=== PATIENT | female | born 1930 | race Caucasian/White ===

== ENCOUNTER 2017-11-13 15:36 | Inpatient (IN) ==
--- NOTE | 2017-11-13 16:02 | Emergency Department Note ---
Disposition Clinical Impression: Pleural effusion due to CHF (congestive heart failure), SOB (shortness of breath) Disposition: Admitted As Inpatient Time of Disposition: 18:44 SOB HPI - General Chief Complaint: ED Shortness of Breath/Dyspnea Stated Complaint: "ray,pain down arm/in back sent from " Time Seen by Provider: 11/13/17 15:45 Source: patient Mode of arrival: ambulatory Limitations: no limitations Nursing Notes Reviewed: Yes Vital Signs Reviewed: Yes - History of Present Illness Patient is an 87-year-old female with past medical history of CAD, none coronary artery occlusion, no previous stent placement or MO. She presents today due to shortness of breath over the past 2 weeks, with worsening over the past few days. She admits to dyspnea with exertion, also has associated left arm pain that radiates up to her neck. Denies any specific chest discomfort. She states that she is usually very active but has not been able to swim or right or bicycle like usual due to significant dyspnea. Denies any history of COPD, asthma. She denies any other nausea, vomiting, fevers, diarrhea, abdominal pain, dysuria, hematuria. Denies any recent long car rides, recent surgeries, none history of DVT or PE, not currently on any estrogen. 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 Otherwise no other cancer history. Admits to cough but denies any productive sputum. - Related Data Home Medications Medication Instructions Recorded Confirmed Aspirin Enteric Coated [Aspirin EC] 81 mg PO QPM 11/13/17 11/13/17 Omeprazole [PriLOSEC] 40 mg PO QAM 11/13/17 11/13/17 Allergies Allergy/AdvReac Type Severity Reaction Status Date / Time alendronate sodium Allergy See Verified 11/13/17 17:14 [From Fosamax] Comments atorvastatin [From Lipitor] Allergy Muscle Pain Verified 11/13/17 17:14 codeine Allergy Dizziness Verified 11/13/17 17:14 ezetimibe [From Zetia] Allergy Dizziness Verified 11/13/17 17:14 fenofibrate Allergy Muscle Pain Verified 11/13/17 17:14 fish oil Allergy Abdominal Verified 11/13/17 17:14 Pain iron Allergy Nausea Verified 11/13/17 17:14 isosorbide [From Imdur] Allergy See Verified 11/13/17 17:14 Comments morphine Allergy Dizziness Verified 11/13/17 17:14 niacin Allergy Muscle Pain Verified 11/13/17 17:14 [From Niaspan Extended-Release] pravastatin [From Pravachol] Allergy Joint Pain Verified 11/13/17 17:14 simvastatin Allergy Flatulence Verified 11/13/17 17:14 All systems ED: reviewed and negative except as stated. Constitutional: Denies: fever Cardiovascular: Denies: chest pain Respiratory: Reports: cough, dyspnea. Denies: wheezes, hemoptysis, sputum production Gastrointestinal: Denies: abdominal pain, nausea, vomiting Genitourinary: Denies: urgency, dysuria Integumentary: Denies: rash Neurological: Denies: headache, weakness, numbness, paresthesias Past Medical History - Past Medical History Attestation: Yes The following information was validated with the patient. Source: patient Medical history: Reports: arthritis, coronary artery disease Surgical history: Reports: cancer surgery, cholecystectomy, hysterectomy, other Psychiatric history: Reports: no psych history - Social History Smoking Status: Never smoker Smokeless Tobacco Status: No Alcohol use: Reports: none Drug use: Reports: none Physical Exam - General Limitations: no limitations General appearance: alert, in no apparent distress - Head Head exam: atraumatic, normocephalic, normal inspection - Eye Eye exam: Present: normal appearance, PERRL, EOMI - ENT ENT exam: normal exam, normal oropharynx, mucous membranes moist - Neck Neck exam: Present: normal inspection, full ROM, trachea midline - Chest Chest inspection: Present: normal inspection, symmetric chest wall rise - Respiratory Respiratory exam: Present: normal lung sounds bilaterally. Absent: respiratory distress, wheezes, stridor, accessory muscle use - Cardiovascular Cardiovascular exam: Present: regular rate, normal rhythm, normal heart sounds - Abdominal Exam Abdominal exam: Present: soft, Non-Tender. Absent: tenderness, distention, guarding, rebound, rigidity - Extremities Exam Extremities exam: Present: normal inspection, full ROM. Absent: tenderness, pedal edema, calf tenderness - Neurological Exam Neurological exam: Present: alert, oriented X3 - Psychiatric Psychiatric exam: Present: normal affect, normal mood - Skin Skin exam: Present: warm, dry, intact, normal color Course Course Narrative: Patient was 95% on room air. Lungs were clear but patient did appear to be mildly short of breath. No significant leg swelling, no calf tenderness. No risk factors for PE. However, I cannot use PERC rule for patient due to age. She does have known CAD, there is concern for ACS picture. We will perform EKG , chest x-ray, troponin, d-dimer to assess for PE. No breathing treatments or steroids at this time as patient has not wheezing and has good airflow. 18:43 workup consistent with CHF, CHF exacerbation. Troponin negative. EKG showed no acute ST changes. BNP elevated at 1300. Chest x-ray shows pleural effusions. Patient was given Lasix here in the department. Discussed admission with the patient for further care, she is agreeable with this plan. Patient was accepted by Dr. Gomez. Vital Signs Temperature 97.3 F L 11/13/17 15:39 Pulse Rate 98 11/13/17 15:39 Respiratory Rate 20 11/13/17 15:39 Blood Pressure 128/80 11/13/17 15:39 O2 Sat by Pulse Oximetry 95 11/13/17 15:39 Temperature 97.3 F L 11/13/17 15:39 Pulse Rate 89 11/13/17 17:34 Respiratory Rate 16 11/13/17 17:34 Blood Pressure 137/94 11/13/17 17:34 O2 Sat by Pulse Oximetry 95 11/13/17 15:39 Oxygen Delivery Oxygen Delivery Room Air Shortness of Breath/Dyspnea - MDM Narrative Medical decision making narrative: Patient was 95% on room air. Lungs were clear but patient did appear to be mildly short of breath. No significant leg swelling, no calf tenderness. No risk factors for PE. However, I cannot use PERC rule for patient due to age. She does have known CAD, there is concern for ACS picture. We will perform EKG , chest x-ray, troponin, d-dimer to assess for PE. No breathing treatments or steroids at this time as patient has not wheezing and has good airflow. 18:43 workup consistent with CHF, CHF exacerbation. Troponin negative. EKG showed no acute ST changes. BNP elevated at 1300. Chest x-ray shows pleural effusions. Patient was given Lasix here in the department. Discussed admission with the patient for further care, she is agreeable with this plan. Patient was accepted by Dr. Gomez. - Medical Records Medical records reviewed: Yes I reviewed the patient's medical records. - Lab Data Lab results reviewed: Yes I reviewed the patient's lab results. Result diagrams: 11/13/17 16:12 11/13/17 16:12 Lab Results 11/13/17 11/13/17 11/13/17 Range/Units 16:12 16:12 16:12 WBC 8.0 (4.3-11.1) K/mcL RBC 4.10 (3.82-4.97) M/mcL Hgb 13.3 (11.5-15.4) g/dL Hct 38.2 (35.3-44.9) % MCV 93.2 (83.0-100.0) fL MCH 32.4 (28.0-33.3) pg MCHC 34.8 (31.6-35.5) g/dL RDW 13.5 (11.5-14.5) % Plt Count 309 (140-400) K/mcL MPV 10.1 (9.4-12.4) fL Immature Gran % 0.2 (0-4) % Seg Neutrophils % 63.9 % Lymphocytes % 24.6 % Monocytes % 10.0 % Eosinophils % 1.2 % Basophils % 0.1 % Neutrophils # 5.1 (1.6-8.9) K/mcL Lymphocytes # 2.0 (0.6-4.6) K/mcL Monocytes # 0.8 (0.0-1.3) K/mcL Eosinophils # 0.1 (0.0-0.6) K/mcL Basophils # 0.0 (0.0-0.2) K/mcL D-Dimer (0-500) ng/mLFEU Sodium 129 L (136-145) mEq/L Potassium 4.3 (3.5-5.1) mEq/L Chloride 99 (98-107) mEq/L Carbon Dioxide 21 L (23-29) mEq/L BUN 11 (8-23) mg/dL Creatinine 0.82 (0.60-1.20) mg/dL Est GFR ( Amer) > 60 (> 60) Est GFR (Non-Af Amer) > 60 (> 60) BUN/Creatinine Ratio 13 (6-26) Glucose 101 (70-105) mg/dL Calculated Osmolality 268 L (280-300) Calcium 9.1 (8.6-10.3) mg/dL Troponin I < 0.03 (< 0.04) ng/mL B-Natriuretic Peptide 1311 H (Less than 100) pg/mL 11/13/17 Range/Units 16:12 WBC (4.3-11.1) K/mcL RBC (3.82-4.97) M/mcL Hgb (11.5-15.4) g/dL Hct (35.3-44.9) % MCV (83.0-100.0) fL MCH (28.0-33.3) pg MCHC (31.6-35.5) g/dL RDW (11.5-14.5) % Plt Count (140-400) K/mcL MPV (9.4-12.4) fL Immature Gran % (0-4) % Seg Neutrophils % % Lymphocytes % % Monocytes % % Eosinophils % % Basophils % % Neutrophils # (1.6-8.9) K/mcL Lymphocytes # (0.6-4.6) K/mcL Monocytes # (0.0-1.3) K/mcL Eosinophils # (0.0-0.6) K/mcL Basophils # (0.0-0.2) K/mcL D-Dimer 495 (0-500) ng/mLFEU Sodium (136-145) mEq/L Potassium (3.5-5.1) mEq/L Chloride (98-107) mEq/L Carbon Dioxide (23-29) mEq/L BUN (8-23) mg/dL Creatinine (0.60-1.20) mg/dL Est GFR ( Amer) (> 60) Est GFR (Non-Af Amer) (> 60) BUN/Creatinine Ratio (6-26) Glucose (70-105) mg/dL Calculated Osmolality (280-300) Calcium (8.6-10.3) mg/dL Troponin I (< 0.04) ng/mL B-Natriuretic Peptide (Less than 100) pg/mL - Radiology Data Radiology results reviewed: Yes I reviewed the patient's radiology results. Chest X-Ray 11/13/17 15:59 IMPRESSION: Interstitial edema with left larger than right pleural effusions D/ / Anderson Mcduffie MD / Anderson Mcduffie MD Interpreting Provider: Anderson Mcduffie MD - EKG Data EKG attestation: Yes I reviewed and interpreted this EKG. EKG results narrative: Normal sinus rhythm. Rate 96. TN 154. QRS 125. QTc 421. Left axis deviation. No acute ST elevation or depression. Q waves in lead 2, 3, aVF that is unchanged from previous EKG. EKG performed on 11/13/2017 at 15:56. Comparison EKG 06/13/2016.
[2017-11-13 16:29] LABS: Basophils % 0.1 %; Eosinophils # 0.1 K/mcL (0.0-0.6); Eosinophils % 1.2 %; Hematocrit 38.2 % (35.3-44.9); Hemoglobin 13.3 g/dL (11.5-15.4); Immature Granulocytes % 0.2 % (0-4); Lymphocytes % 24.6 %; Mean Corpuscular HGB Conc 34.8 g/dL (31.6-35.5); Mean Corpuscular Hemoglobin 32.4 pg (28.0-33.3); Mean Corpuscular Volume 93.2 fL (83.0-100.0); Mean Platelet Volume 10.1 fL (9.4-12.4); Monocytes # 0.8 K/mcL (0.0-1.3); Neutrophils # 5.1 K/mcL (1.6-8.9); Platelet Count 309 K/mcL (140-400); Red Cell Distribution Width 13.5 % (11.5-14.5); Segmented Neutrophils % 63.9 %
[2017-11-13 16:46] LABS: BUN/Creatinine Ratio 13 (6-26); Blood Urea Nitrogen 11 mg/dL (8-23); Calcium 9.1 mg/dL (8.6-10.3); Carbon Dioxide 21 mEq/L (23-29); Chloride 99 mEq/L (98-107); Glucose 101 mg/dL (70-105); Osmolality,Calculated 268 (280-300); Potassium 4.3 mEq/L (3.5-5.1); Sodium 129 mEq/L (136-145); Troponin I < 0.03 ng/mL (< 0.04); eGFR For African Americans > 60 (> 60); eGFR For Non-African Americans > 60 (> 60)
[2017-11-13] MEDS ORDERED: Furosemide 20 MG/2 ML VIAL IVP ONE (16:48)
--- NOTE | 2017-11-13 16:49 | Emergency Department Note ---
Disposition Clinical Impression: Pleural effusion due to CHF (congestive heart failure), SOB (shortness of breath) Disposition: Admitted As Inpatient Referrals: Ekaterina Joseph MD [Primary Care Provider] - Forms: ED Satisfaction Letter General Adult HPI - General Chief complaint: ED Shortness of Breath/Dyspnea Stated complaint: "ray,pain down arm/in back sent from " Time Seen by Provider: 11/13/17 15:45 Source: patient Mode of arrival: ambulatory Limitations: no limitations - History of Present Illness Pain Scale: 9 - Related Data Previous Rx's Medication Instructions Recorded Meclizine [Antivert] 12.5 mg PO TID PRN #6 tablet 06/13/16 Allergies Allergy/AdvReac Type Severity Reaction Status Date / Time alendronate sodium Allergy See Unverified 11/13/17 15:39 [From Fosamax] Comments atorvastatin [From Lipitor] Allergy Muscle Pain Unverified 11/13/17 15:39 codeine Allergy Dizziness Unverified 11/13/17 15:39 ezetimibe [From Zetia] Allergy Dizziness Unverified 11/13/17 15:39 fenofibrate Allergy Muscle Pain Unverified 11/13/17 15:39 fish oil Allergy Abdominal Unverified 11/13/17 15:39 Pain iron Allergy Nausea Unverified 11/13/17 15:39 isosorbide [From Imdur] Allergy See Unverified 11/13/17 15:39 Comments morphine Allergy Dizziness Unverified 11/13/17 15:39 niacin Allergy Muscle Pain Unverified 11/13/17 15:39 [From Niaspan Extended-Release] pravastatin [From Pravachol] Allergy Joint Pain Unverified 11/13/17 15:39 simvastatin Allergy Flatulence Unverified 11/13/17 15:39 Constitutional: Denies: fever Cardiovascular: Denies: chest pain Respiratory: Reports: cough, dyspnea. Denies: wheezes, hemoptysis, sputum production Gastrointestinal: Denies: abdominal pain, nausea, vomiting Genitourinary: Denies: urgency, dysuria Integumentary: Denies: rash Neurological: Denies: headache, weakness, numbness, paresthesias Past Medical History - Past Medical History Medical history: Reports: arthritis, coronary artery disease Surgical history: Reports: cancer surgery, cholecystectomy, hysterectomy, other Psychiatric history: Reports: no psych history - Social History Smoking Status: Never smoker Smokeless Tobacco Status: No Alcohol use: Reports: none Drug use: Reports: none Physical Exam - General Limitations: no limitations General appearance: alert, in no apparent distress Course Vital Signs Temperature 97.3 F L 11/13/17 15:39 Pulse Rate 98 11/13/17 15:39 Respiratory Rate 20 11/13/17 15:39 Blood Pressure 128/80 11/13/17 15:39 O2 Sat by Pulse Oximetry 95 11/13/17 15:39 Temperature 97.3 F L 11/13/17 15:39 Pulse Rate 98 11/13/17 15:39 Respiratory Rate 20 11/13/17 15:39 Blood Pressure 128/80 11/13/17 15:39 O2 Sat by Pulse Oximetry 95 11/13/17 15:39 Oxygen Delivery Oxygen Delivery Room Air Medical Decision Making - Lab Data Result diagrams: 11/13/17 16:12 11/13/17 16:12 Lab Results 11/13/17 11/13/17 11/13/17 Range/Units 16:12 16:12 16:12 WBC 8.0 (4.3-11.1) K/mcL RBC 4.10 (3.82-4.97) M/mcL Hgb 13.3 (11.5-15.4) g/dL Hct 38.2 (35.3-44.9) % MCV 93.2 (83.0-100.0) fL MCH 32.4 (28.0-33.3) pg MCHC 34.8 (31.6-35.5) g/dL RDW 13.5 (11.5-14.5) % Plt Count 309 (140-400) K/mcL MPV 10.1 (9.4-12.4) fL Immature Gran % 0.2 (0-4) % Seg Neutrophils % 63.9 % Lymphocytes % 24.6 % Monocytes % 10.0 % Eosinophils % 1.2 % Basophils % 0.1 % Neutrophils # 5.1 (1.6-8.9) K/mcL Lymphocytes # 2.0 (0.6-4.6) K/mcL Monocytes # 0.8 (0.0-1.3) K/mcL Eosinophils # 0.1 (0.0-0.6) K/mcL Basophils # 0.0 (0.0-0.2) K/mcL D-Dimer 495 (0-500) ng/mLFEU Sodium 129 L (136-145) mEq/L Potassium 4.3 (3.5-5.1) mEq/L Chloride 99 (98-107) mEq/L Carbon Dioxide 21 L (23-29) mEq/L BUN 11 (8-23) mg/dL Creatinine 0.82 (0.60-1.20) mg/dL Est GFR ( Amer) > 60 (> 60) Est GFR (Non-Af Amer) > 60 (> 60) BUN/Creatinine Ratio 13 (6-26) Glucose 101 (70-105) mg/dL Calculated Osmolality 268 L (280-300) Calcium 9.1 (8.6-10.3) mg/dL Troponin I < 0.03 (< 0.04) ng/mL Attestation Statement - Attestation Attestation: I examined this patient and my medical decision-making was reviewed with the Resident Physician. I agree with the documented findings, disposition and treatment plan as described except to the extent set forth below. 87 yo F here for sob, dumont, left arm pain. workup shows bilat Pleural effusions. pt will need to be admitted for chf workup. no previous stents but has had heart caths in past that didn't show any significant stenosis. cp free in ER ekg nondiagnostic cxr as above
--- NOTE | 2017-11-13 20:21 | Internal Med History&Physical ---
Date of Encounter: 11/13/17 Time of Encounter: 20:21 Internal Medicine - H&P: HPI Chief complaint: SOB History of present illness: Patient is an 87-year-old female with past medical history of CAD, none coronary artery occlusion, no previous stent placement or ND who present with progressively worsening 2 weeks history of shortness breath and dry cough, She admits to dyspnea with exertion, also has associated left arm pain that radiates up to her neck. Denies any specific chest discomfort. She states that she is usually very active but has not been able to swim or right or bicycle like usual due to significant dyspnea. Denies any history of COPD, asthma. She denies any other nausea, vomiting, fevers, diarrhea, abdominal pain , dysuria, hematuria. CXR revealed Heart size borderline. There are increased interstitial markings in the peripheral right lower lung. There are left larger than right pleural effusions with compressive bibasilar atelectasis. Past Med Surg Social Fam HX - Past Medical History Medical history: arthritis, cancer, coronary artery disease Additional medical history: macular degentration Psychiatric history: no psych history - Past Surgical History Surgical History: cancer surgery, cholecystectomy, hysterectomy, orthopedic, other, other Additional surgical history: right breast masectomy - Social History Smoking Status: Never smoker Smokeless Tobacco Status: No Alcohol use: none Drug use: none - Family History Mother Living Status: Age at : 83 Hx Family Endocrine Disorder: Yes (THY DX, DM) Hx Family Neurologic Disorders: Yes (Alzheimers) Father Living Status: Age at : 82 Cause of : Prostate cancer with mets Hx Family Cancer: Yes (Prostate Cancer) Internal Medicine - H&P: Meds Aspirin Enteric Coated [Aspirin EC] 81 mg PO QPM 11/13/17 [History] Omeprazole [PriLOSEC] 40 mg PO QAM 11/13/17 [History] 3 Allergy/AdvReac Type Severity Reaction Status Date / Time alendronate sodium Allergy See Verified 11/13/17 17:14 [From Fosamax] Comments atorvastatin [From Lipitor] Allergy Muscle Pain Verified 11/13/17 17:14 codeine Allergy Dizziness Verified 11/13/17 17:14 ezetimibe [From Zetia] Allergy Dizziness Verified 11/13/17 17:14 fenofibrate Allergy Muscle Pain Verified 11/13/17 17:14 fish oil Allergy Abdominal Verified 11/13/17 17:14 Pain iron Allergy Nausea Verified 11/13/17 17:14 isosorbide [From Imdur] Allergy See Verified 11/13/17 17:14 Comments morphine Allergy Dizziness Verified 11/13/17 17:14 niacin Allergy Muscle Pain Verified 11/13/17 17:14 [From Niaspan Extended-Release] pravastatin [From Pravachol] Allergy Joint Pain Verified 11/13/17 17:14 simvastatin Allergy Flatulence Verified 11/13/17 17:14 All Systems PM: A 10-system review of systems was performed and is negative for pertinent findings except as documented above in the HPI. - Constitutional Constitutional: no chills, no fever(s), no night sweats - Cardiovascular Cardiovascular ROS IM: chest pain, dyspnea, dyspnea on exertion, no diaphoresis , no lightheadedness, no palpitations, no syncope - Respiratory Respiratory: dyspnea, no cough, no wheezing, no excessive phlegm production - Neurological Neurological ROS: no confusion, no convulsions, no focal weakness, no numbness, no tingling, no tremor(s) - Constitutional Vitals: Temp Pulse Resp BP Pulse Ox 97.3 F L 89 16 137/94 95 11/13/17 15:39 11/13/17 17:34 11/13/17 17:34 11/13/17 17:34 11/13/17 15:39 General appearance: Present: A&O X 3 - Head Head exam: Present: atraumatic, normocephalic - Neck Neck exam general surgery: Present: supple, trachea midline. Absent: lymphadenopathy - Respiratory Respiratory exam: Present: rales. Absent: accessory muscle use, rhonchi, wheezes - Cardiovascular Cardiovascular exam: Present: RRR, +S1, +S2. Absent: diastolic murmur, gallop, rubs, systolic murmur - Extremities Exam Extremities exam: Present: pedal edema, warm, radial pulses palpable and symmetrical. Absent: calf tenderness, cyanotic Internal Med - H&P Results - Labs CBC & Chem 7: 11/14/17 03:54 11/14/17 03:54 - Assessment and plan (1) Pleural effusion due to CHF (congestive heart failure) Current Visit: Yes Status: Acute Assessment and plan: ASSESSMENT: - SOB due to pleural effusion in the sitting of CHF exacerbation due to uncontrolled HTN R/O ischemia Noncompliance URTI PLAN: - CPP x 1 more, 8 hr after the 1st one - EKG in AM - ASA - O2 to keep SpO2 > 92% - Lasix 40 mg IV BID - Aerosols UD q 4 hr - UA - Urine toxic screen - 2D Echo - CBCD, BMP in AM - Fasting lipids - Tylenol 650 mg PO q 4-6 hr PRN pain - Home meds - Heparin 5000 U SQ BID (2) Coronary artery disease Current Visit: Yes Status: Acute Assessment and plan: we will cont home meds (3) DVT prophylaxis Current Visit: Yes Status: Acute Assessment and plan: Heparin 5000 BID - Time Spent With Patient Total time spent is greater than 50% in coordination of care (as documented) at patient's floor/unit and/or counseling patient:
[2017-11-13] MEDS ORDERED: traMADol 50 MG TABLET PO PRN (20:56)
[2017-11-13] MEDS ORDERED: *HR* HYDROcodone/Acet 5/325 mg TABLET PO PRN (20:56)
[2017-11-13] MEDS ORDERED: Naloxone 0.4 MG/ML INJ IVP PRN (20:56)
[2017-11-13] MEDS ORDERED: *HR* OxyCODONE Immed Rel 5 MG TABLET PO PRN (20:56)
[2017-11-13] MEDS ORDERED: Ondansetron ODT 4 MG TAB.RAPDIS SL PRN (20:56)
[2017-11-13] MEDS: Furosemide 40 MG/4 ML VIAL IVP SCH (23:52)
[2017-11-14 04:10] LABS: Hematocrit 37.5 % (35.3-44.9); Hemoglobin 12.6 g/dL (11.5-15.4); Mean Corpuscular HGB Conc 33.6 g/dL (31.6-35.5); Mean Corpuscular Hemoglobin 31.1 pg (28.0-33.3); Mean Corpuscular Volume 92.6 fL (83.0-100.0); Mean Platelet Volume 9.8 fL (9.4-12.4); Platelet Count 303 K/mcL (140-400); Red Blood Count 4.05 M/mcL (3.82-4.97); Red Cell Distribution Width 13.5 % (11.5-14.5)
[2017-11-14 04:19] LABS: Prothrombin Time 11.7 Seconds (9.4-12.1)
[2017-11-14 04:30] LABS: Alanine Aminotransferase 9 Units/L (7-52); Albumin/Globulin Ratio 1.7 (1.1-2.2); Alkaline Phosphatase 49 Units/L (34-104); Aspartate Amino Transferase 13 Units/L (13-39); BUN/Creatinine Ratio 15 (6-26); Bilirubin,Total 0.6 mg/dL (0.3-1.0); Blood Urea Nitrogen 13 mg/dL (8-23); Carbon Dioxide 24 mEq/L (23-29); Chloride 99 mEq/L (98-107); Chol/HDL Ratio 6.7 (0-4.9); Cholesterol 235 mg/dL (< 200); Globulin 2.3 g/dL (2.4-3.5); Glucose 103 mg/dL (70-105); HDL Cholesterol 35 mg/dL (40-59); Osmolality,Calculated 274 (280-300); Potassium 3.6 mEq/L (3.5-5.1); Sodium 132 mEq/L (136-145); Total Protein 6.3 g/dL (6.4-8.9); Triglycerides 403 mg/dL (< 150); eGFR For African Americans > 60 (> 60); eGFR For Non-African Americans > 60 (> 60)
[2017-11-14] MEDS: Furosemide 40 MG/4 ML VIAL IVP SCH ×2 (08:40→18:05)
[2017-11-14] MEDS ORDERED: Perflutren Lipid Microsphere 1.3 ML in 0.9 % Sodium Chloride 8.7 ML IVP ONE (09:57)
--- NOTE | 2017-11-14 16:03 | Internal Med Progress Note ---
Date of Encounter: 11/14/17 Time of Encounter: 10:50 - Assessment and plan (1) CHF (congestive heart failure) Current Visit: Yes Status: Acute Assessment and plan: No prior history of CHF. Echocardiogram noted to show significant cardiomyopathy with EF 20-25%, global systolic dysfunction, left ventricular dilation, indeterminate diastolic function. Continue diuresis with IV Lasix, start low-dose beta bienvenido. Lipid profile reviewed, noted to have elevated triglycerides and LDL cholesterol. Start statin. Consult cardiology for ischemic evaluation. Continue supportive care and supplemental oxygen. High risk for complications. Qualifiers: Heart failure type: systolic Heart failure chronicity: acute Qualified Code(s): I50.21 - Acute systolic (congestive) heart failure (2) Pleural effusion due to CHF (congestive heart failure) Current Visit: Yes Status: Acute Assessment and plan: Chest x-ray showed bilateral pleural effusions and patient presented with dyspnea and hypoxia and elevated BNP. Follow-up echocardiogram and continue IV Lasix. No signs of infection/pneumonia at this time. (3) DVT prophylaxis Current Visit: Yes Status: Acute (4) Coronary artery disease Current Visit: Yes Status: Chronic Assessment and plan: plan as above; patient probably needs [facility] if agreeable; Qualifiers: Coronary Disease-Associated Artery/Lesion type: [place] artery [place] vs. transplanted heart: [place] heart Associated angina: without angina Qualified Code(s): I25.10 - Atherosclerotic heart disease of [place] coronary artery without angina pectoris (5) Osteoarthritis Current Visit: Yes Status: Chronic Qualifiers: Osteoarthritis location: unspecified site Osteoarthritis type: primary Qualified Code(s): M19.91 - Primary osteoarthritis, unspecified site - Time Spent With Patient Total time spent is greater than 50% in coordination of care (as documented) at patient's floor/unit and/or counseling patient: - Subjective Interval history: Reports feeling better. Improving shortness of breath and leg swelling. No chest pain, palpitations, dizziness or syncope. - Constitutional Vitals: Temp Pulse Resp BP Pulse Ox 97.8 F 84 16 117/61 94 11/14/17 15:24 11/14/17 15:24 11/14/17 15:24 11/14/17 15:24 11/14/17 15:24 General appearance: Present: A&O X 3, answers questions appropriately - Respiratory Respiratory exam: Present: CTAB. Absent: accessory muscle use, rales, rhonchi, wheezes - Cardiovascular Cardiovascular exam: Present: RRR, +S1, +S2. Absent: diastolic murmur, gallop, rubs, systolic murmur - GI/Abdominal GI/Abdominal exam: Present: normal bowel sounds, soft, no peritoneal signs. Absent: distended, tenderness - Extremities Exam Extremities exam: Present: full ROM, pedal edema, warm, radial pulses palpable and symmetrical. Absent: calf tenderness, cyanotic - Neurological Exam Neurological exam: Present: CN II-XII intact, oriented X3, no focal deficits. Absent: pronater drift, facial droop, speech deficit Internal Medicine: Result - Labs CBC & Chem 7: 11/14/17 03:54 11/14/17 03:54 Labs: Short CBC 11/14/17 Range/Units 03:54 WBC 6.5 (4.3-11.1) K/mcL Hgb 12.6 (11.5-15.4) g/dL Hct 37.5 (35.3-44.9) % Plt Count 303 (140-400) K/mcL BMP 11/14/17 03:54 Sodium 132 L Potassium 3.6 Chloride 99 Carbon Dioxide 24 BUN 13 Creatinine 0.86 Glucose 103 Calcium 9.0 Cardiac Enzymes 11/13/17 11/14/17 11/14/17 Range/Units 21:14 03:54 09:56 Troponin I < 0.03 < 0.03 < 0.03 (< 0.04) ng/mL Liver Function 11/14/17 Range/Units 03:54 Total Bilirubin 0.6 (0.3-1.0) mg/dL AST 13 (13-39) Units/L ALT 9 (7-52) Units/L Alkaline Phosphatase 49 (34-104) Units/L Albumin 4.0 (3.5-5.7) g/dL - ABG Interpretation ABG results: PT/INR, D-dimer PT 11.7 Seconds (9.4-12.1) 11/14/17 03:54 D-Dimer 495 ng/mLFEU (0-500) 11/13/17 16:12 - Impressions Impressions Echocardiogram 11/14/17 21:02 Impressions: LVEF 20-25%. Severely dilated left ventricle. Severe global left ventricular systolic dysfunction. Indeterminate diastolic function. Normal right ventricular structure and function. No evidence of pulmonary hypertension. No significant valvular dysfunction. Left Ventricular Wall Motion: Rest Echo Findings The apex, apical inferior, mid inferior, basal inferior, apical anterior, mid anterior, basal anterior, apical septal, mid inferior septal, basal inferior septal, apical lateral, mid anterior lateral, basal anterior lateral, mid anterior septal, mid inferior lateral, basal anterior septal and basal inferior lateral razo were hypokinetic. Findings: Study Quality * Technically adequate exam. ECG Findings * Normal sinus rhythm. Left Ventricle * LVEF 20-25%. * Severely dilated left ventricle. * Severe global left ventricular systolic dysfunction. * Indeterminate diastolic function. Right Ventricle * Normal right ventricular structure and function. Left Atrium * Moderately dilated left atrium. Right Atrium * Mildly dilated right atrium. Aortic Valve * Trileaflet aortic valve. * Mildly sclerotic aortic valve leaflets. * Normal aortic valve function. * No aortic regurgitation. * No aortic stenosis. Mitral Valve * Normal mitral valve structure and function. * No mitral stenosis. * Trace mitral regurgitation. Tricuspid Valve * Normal tricuspid valve structure and function. * Trace tricuspid regurgitation. * No evidence of pulmonary hypertension. Pulmonic Valve * Normal pulmonic valve structure and function. * No pulmonic regurgitation. Aorta * Normally sized aortic root. Pericardium * The pericardium appears normal. IVC * Normal IVC dimensions and inspiratory collapse. Pulmonary Artery * Normal visualized portions of the main pulmonary artery. Consult Discharge Plan - Plan Referrals: Ekaterina Joseph MD [Primary Care Provider] -
[2017-11-14] MEDS: Aspirin Enteric Coated 81 MG Tablet PO SCH (18:05)
[2017-11-14] MEDS ORDERED: Glycerin RECTAL Suppository RC PRN (18:59)
--- NOTE | 2017-11-14 20:18 | Cardiology Consult Note ---
Date of Encounter: 11/14/17 Time of Encounter: 20:16 Assessment and Plan (1) Coronary artery disease Current Visit: Yes Status: Chronic Known coronary artery disease as described above. With significant drop in her ejection fraction aggressive risk stratification was discussed with patient and family did agree to proceed with a left heart cath. Due to her decompensated heart failure and mild orthopnea patient will continue to be diuresed gently and reevaluated for catheterization once stable Qualifiers: Coronary Disease-Associated Artery/Lesion type: [place] artery [place] vs. transplanted heart: [place] heart Associated angina: without angina Qualified Code(s): I25.10 - Atherosclerotic heart disease of [place] coronary artery without angina pectoris (2) CHF (congestive heart failure) Current Visit: Yes Status: Acute Ischemic cardiomyopathy decompensated mild hypervolemia currently improved from initial admission. Ejection fraction currently 20-25% significantly lower than previous. We will proceed with a left heart catheterization once patient is euvolemic and able to lay flat. Currently denies any chest pain and is hemodynamically stable Qualifiers: Heart failure type: systolic Heart failure chronicity: acute Qualified Code(s): I50.21 - Acute systolic (congestive) heart failure Discussion w patient/family: The assessment and plan as outlined above was discussed with the patient and/or family members who expressed understanding and agreement. All questions were answered. Thank you for involving us in the care of your patient. Please call with any questions. History of Present Illness Consult date: 11/14/17 Consult reason: CHF Chief complaint: PLATT History of present illness: Ms. Saleem is a 87 year old female with multiple cardiac risk factors and history of known coronary artery disease with an occluded RCA receiving collaterals from the left anterior descending presents with increasing dyspnea on exertion over the last 2 weeks. She is fairly active swimming on a daily basis and right her bike every other day. She has been experiencing increasing exertional shortness of breath associated with bilateral lower extremity edema and mild orthopnea. Her last heart catheter was 2011 which revealed an occluded RCA receiving collaterals from the LAD with nonobstructive disease involving the proximal ramus and circumflex. She also has nonobstructive disease proximally 50% in the mid and mid to distal LAD according to records. Her last ejection fraction was 45% in 2013 currently on presentation echocardiogram shows severely dilated left ventricle with an ejection fraction of 20-25%. Past Med Surg Social Fam HX - Past Medical History Medical history: arthritis, cancer, coronary artery disease Additional medical history: macular degentration Psychiatric history: no psych history - Past Surgical History Surgical History: cancer surgery, cholecystectomy, hysterectomy, orthopedic, other, other Additional surgical history: right breast masectomy - Social History Smoking Status: Never smoker Smokeless Tobacco Status: No Alcohol use: none Drug use: none - Family History Mother Living Status: Age at : 83 Hx Family Endocrine Disorder: Yes (THY DX, DM) Hx Family Neurologic Disorders: Yes (Alzheimers) Father Living Status: Age at : 82 Cause of : Prostate cancer with mets Hx Family Cancer: Yes (Prostate Cancer) Medications and Allergies Aspirin Enteric Coated [Aspirin EC] 81 mg PO QPM 11/13/17 [History] Omeprazole [PriLOSEC] 40 mg PO QAM 11/13/17 [History] Glycerin [Glycerin Laxative] 5.4 gm RC DAILY 11/14/17 [History] 3 Allergy/AdvReac Type Severity Reaction Status Date / Time alendronate sodium Allergy See Verified 11/13/17 17:14 [From Fosamax] Comments atorvastatin [From Lipitor] Allergy Muscle Pain Verified 11/13/17 17:14 codeine Allergy Dizziness Verified 11/13/17 17:14 ezetimibe [From Zetia] Allergy Dizziness Verified 11/13/17 17:14 fenofibrate Allergy Muscle Pain Verified 11/13/17 17:14 fish oil Allergy Abdominal Verified 11/13/17 17:14 Pain iron Allergy Nausea Verified 11/13/17 17:14 isosorbide [From Imdur] Allergy See Verified 11/13/17 17:14 Comments morphine Allergy Dizziness Verified 11/13/17 17:14 niacin Allergy Muscle Pain Verified 11/13/17 17:14 [From Niaspan Extended-Release] pravastatin [From Pravachol] Allergy Joint Pain Verified 11/13/17 17:14 simvastatin Allergy Flatulence Verified 11/13/17 17:14 All Systems Review: The remainder of the systems were reviewed and are negative Physical Examination Vital Signs, Last 4 Hours Pulse Ox 11/14/17 19:45 94 General: Conversant (Mild bibasilar crackles), No Apparent Distress HEENT: Atraumatic, Normocephaly, Mucus Membranes Moist Neck: No JVD, Normal carotid pulses Cardiac: Reg Rate and Rhythm, Normal S1 and S2, No Murmur Lungs: Normal Breath Sounds, No Wheeze, Rales, Rhonchi Neuro: Alert and responsive, No focal deficits noted Abdomen: Soft, Non-Tender Skin: No rashes noted on visualized skin Musculoskeletal: No Chest Wall Tenderness Extremities: No Clubbing, No Cyanosis, No Edema, Normal Pulses Results 11/14/17 03:54 11/14/17 03:54 Lab Results 11/13/17 11/14/17 11/14/17 21:14 03:54 03:54 WBC 6.5 Hgb 12.6 Hct 37.5 Plt Count 303 INR APTT Sodium Potassium Chloride Carbon Dioxide BUN Creatinine Glucose Calcium Magnesium Total Bilirubin AST ALT Alkaline Phosphatase Troponin I < 0.03 < 0.03 B-Natriuretic Peptide 11/14/17 11/14/17 11/14/17 03:54 03:54 03:54 WBC Hgb Hct Plt Count INR 1.0 APTT 32.0 Sodium 132 L Potassium 3.6 Chloride 99 Carbon Dioxide 24 BUN 13 Creatinine 0.86 Glucose 103 Calcium 9.0 Magnesium 2.0 Total Bilirubin 0.6 AST 13 ALT 9 Alkaline Phosphatase 49 Troponin I B-Natriuretic Peptide 1276 H 11/14/17 09:56 WBC Hgb Hct Plt Count INR APTT Sodium Potassium Chloride Carbon Dioxide BUN Creatinine Glucose Calcium Magnesium Total Bilirubin AST ALT Alkaline Phosphatase Troponin I < 0.03 B-Natriuretic Peptide Consult Discharge Plan - Plan Referrals: Ekaterina Joseph MD [Primary Care Provider] -
[2017-11-15 05:13] LABS: BUN/Creatinine Ratio 23 (6-26); Blood Urea Nitrogen 20 mg/dL (8-23); Calcium 8.7 mg/dL (8.6-10.3); Carbon Dioxide 22 mEq/L (23-29); Chloride 98 mEq/L (98-107); Glucose 98 mg/dL (70-105); Magnesium 2.1 mg/dL (1.6-2.6); Osmolality,Calculated 275 (280-300); Potassium 3.7 mEq/L (3.5-5.1); Sodium 131 mEq/L (136-145); eGFR For African Americans > 60 (> 60); eGFR For Non-African Americans > 60 (> 60)
[2017-11-15] MEDS: Furosemide 40 MG/4 ML VIAL IVP SCH ×2 (10:06→16:51)
--- NOTE | 2017-11-15 12:45 | Cardiology Progress Note ---
Date of Encounter: 11/15/17 Time of Encounter: 12:30 Assessment and Plan (1) CHF (congestive heart failure) Current Visit: Yes Status: Acute Per Cardiology: BNP 1200's, CXR = interstitial edema. Net I&O -2680ml. On Lasix 40 mg IV twice a day. Kidney function stable. We will add 1.5 L fluid ejection and strict I's and O's. Ejection fraction currently 20-25% significantly lower than previous. We will proceed with a left heart catheterization once patient is euvolemic and able to lay flat. Currently denies any chest pain and is hemodynamically stable. Most likely plan for catheterization tomorrow. Will switch to Toprol XL as BP allows. Qualifiers: Heart failure type: systolic Heart failure chronicity: acute Qualified Code(s): I50.21 - Acute systolic (congestive) heart failure (2) Coronary artery disease Current Visit: Yes Status: Chronic Per Cardiolpogy: "Last LHC was 2011 which revealed an occluded RCA receiving collaterals from the LAD with nonobstructive disease involving the proximal ramus and circumflex. She also has nonobstructive disease proximally 50% in the mid and mid to distal LAD according to records. Her last ejection fraction was 45% in 2013 currently on presentation echocardiogram shows severely dilated left ventricle with an ejection fraction of 20-25%". On asa, has past intolerance to statins. Adding BB as able to tolerate. Qualifiers: Coronary Disease-Associated Artery/Lesion type: [place] artery [place] vs. transplanted heart: [place] heart Associated angina: without angina Qualified Code(s): I25.10 - Atherosclerotic heart disease of [place] coronary artery without angina pectoris Discussion w patient/family: The assessment and plan as outlined above was discussed with the patient and/or family members who expressed understanding and agreement. All questions were answered. Thank you for involving us in the care of your patient. Please call with any questions. Subjective Principal diagnosis: SOB, Swelling Interval history: Patient seen with family at bedside. She reports improvement of her shortness of breath and swelling to lower extremities. She denies any chest pain or palpitations. Denies any concerns or complaints. Objective Vital Signs, Last 4 Hours Temp Pulse Resp BP Pulse Ox 11/15/17 11:08 97.6 F 78 16 102/73 94 General: Conversant, No Apparent Distress HEENT: Atraumatic, Normocephaly, Mucus Membranes Moist Neck: No JVD, Normal carotid pulses Cardiac: Reg Rate and Rhythm, Normal S1 and S2, No Murmur Lungs: Normal Breath Sounds, No Wheeze, Rales, Rhonchi, Other (Mild conversational dyspnea noted) Neuro: Alert and responsive, No focal deficits noted Abdomen: Soft, Non-Tender Skin: No rashes noted on visualized skin Musculoskeletal: No Chest Wall Tenderness Extremities: No Clubbing, No Cyanosis, No Edema, Normal Pulses Results 11/14/17 03:54 11/15/17 04:37 Lab Results Laboratory Tests 11/13/17 11/13/17 11/14/17 16:12 21:14 03:54 Creatinine Est GFR (Non-Af Amer) Magnesium Troponin I < 0.03 < 0.03 < 0.03 B-Natriuretic Peptide 11/14/17 11/14/17 11/15/17 03:54 09:56 04:37 Creatinine 0.87 Est GFR (Non-Af Amer) > 60 Magnesium 2.1 Troponin I < 0.03 B-Natriuretic Peptide 1276 H Intake & Output 11/12/17 11/13/17 11/14/17 11/15/17 23:59 23:59 23:59 23:59 Intake Total 240 / 240 480 / 480 60 / 60 Output Total 2610 / 2610 850 / 850 Balance 240 / 240 -2130 / -2130 -790 / -790 Weight 68.3 kg 68.1 kg ITS Impressions Chest X-Ray 11/13/17 15:59 IMPRESSION: Interstitial edema with left larger than right pleural effusions D/ / Anderson Mcduffie MD / Anderson Mcduffie MD Interpreting Provider: Anderson Mcduffie MD Echocardiogram 11/14/17 21:02 Impressions: LVEF 20-25%. Severely dilated left ventricle. Severe global left ventricular systolic dysfunction. Indeterminate diastolic function. Normal right ventricular structure and function. No evidence of pulmonary hypertension. No significant valvular dysfunction. Left Ventricular Wall Motion: Rest Echo Findings The apex, apical inferior, mid inferior, basal inferior, apical anterior, mid anterior, basal anterior, apical septal, mid inferior septal, basal inferior septal, apical lateral, mid anterior lateral, basal anterior lateral, mid anterior septal, mid inferior lateral, basal anterior septal and basal inferior lateral razo were hypokinetic. Findings: Study Quality * Technically adequate exam. ECG Findings * Normal sinus rhythm. Left Ventricle * LVEF 20-25%. * Severely dilated left ventricle. * Severe global left ventricular systolic dysfunction. * Indeterminate diastolic function. Right Ventricle * Normal right ventricular structure and function. Left Atrium * Moderately dilated left atrium. Right Atrium * Mildly dilated right atrium. Aortic Valve * Trileaflet aortic valve. * Mildly sclerotic aortic valve leaflets. * Normal aortic valve function. * No aortic regurgitation. * No aortic stenosis. Mitral Valve * Normal mitral valve structure and function. * No mitral stenosis. * Trace mitral regurgitation. Tricuspid Valve * Normal tricuspid valve structure and function. * Trace tricuspid regurgitation. * No evidence of pulmonary hypertension. Pulmonic Valve * Normal pulmonic valve structure and function. * No pulmonic regurgitation. Aorta * Normally sized aortic root. Pericardium * The pericardium appears normal. IVC * Normal IVC dimensions and inspiratory collapse. Pulmonary Artery * Normal visualized portions of the main pulmonary artery. Active Medications Acetaminophen (Tylenol) 650 mg PO Q6HR PRN PRN Reason: Mild Pain/Fever Stop: 05/15/18 20:57 Hydrocodone Bitart/Acetaminophen ([place] 5-325 Mg) 1 tab PO Q6HR PRN PRN Reason: Moderate Pain Stop: 05/15/18 20:57 Aspirin (Aspirin Ec) 81 mg PO QPM [facility] Stop: 05/16/18 18:01 Last Admin: 11/14/17 18:05 Dose: 81 mg Furosemide (Lasix) 40 mg IVP BIDDIURETIC [facility] Stop: 05/15/18 21:16 Last Admin: 11/15/17 10:06 Dose: 40 mg Glycerin (Sani-Supp) 1 each RC DAILY PRN PRN Reason: Constipation Stop: 05/16/18 19:00 Last Admin: 11/14/17 20:40 Dose: 1 each Metoprolol Tartrate (Lopressor) 12.5 mg PO BID [facility] Stop: 05/16/18 21:01 Last Admin: 11/15/17 10:03 Dose: Not Given Naloxone HCl (Narcan) 0.4 mg IVP Q2MIN PRN PRN Reason: SEE COMMENTS Stop: 05/15/18 20:57 Omeprazole (Prilosec) 40 mg PO 0630 DYLAN Stop: 05/16/18 06:31 Last Admin: 11/15/17 05:49 Dose: 40 mg Ondansetron HCl (Zofran Odt) 4 mg SL Q8HR PRN PRN Reason: Nausea And Vomiting Stop: 05/15/18 20:57 Oxycodone HCl (Roxicodone) 10 mg PO Q6HR PRN PRN Reason: Severe Pain Stop: 05/15/18 20:57 Tramadol HCl (Ultram) 50 mg PO Q6HR PRN PRN Reason: Moderate Pain Stop: 05/15/18 20:57 - Imaging and Cardiology Echo: report reviewed Consult Discharge Plan - Plan Referrals: Ekaterina Joseph MD [Primary Care Provider] -
[2017-11-15 14:13] LABS: Bilirubin,Urine Negative (Negative); Blood,Urine Negative (Negative); Clarity,Urine Clear (Clear); Color,Urine Yellow (Yellow); Glucose,Urine (UA) Normal (Normal); Ketones,Urine Negative (Negative); Leukocyte Esterase,Urine Trace (Negative); Nitrite,Urine Negative (Negative); Protein,Urine Negative (Neg-Trace); Specific Gravity,Urine 1.008 (1.010-1.025); Urobilinogen,Urine Normal (Normal)
[2017-11-15 14:15] LABS: Bacteria,Urine None Seen per hpf (None-Few); Hyaline Casts,Urine None Seen per lpf (None-Few); RBC,Urine 0-3 per hpf (0-3); Squamous Epithelial Cell,Urine Few per lpf (None-Few); WBC,Urine 0-3 per hpf (0-3)
--- NOTE | 2017-11-15 16:49 | Internal Med Progress Note ---
Date of Encounter: 11/15/17 Time of Encounter: 11:00 - Assessment and plan (1) CHF (congestive heart failure) Current Visit: Yes Status: Acute Assessment and plan: Echocardiogram noted to show significant cardiomyopathy with EF 20-25%, global systolic dysfunction, left ventricular dilation, indeterminate diastolic function. Continue diuresis with IV Lasix, fluid restriction and urine output monitoring. Telemetry monitoring. Serial troponins negative for ACS. Patient is unable to tolerate beta bienvenido as she reports significant fatigue and drowsiness, will hold for now. Lipid profile reviewed, noted to have elevated triglycerides and LDL cholesterol. However patient is noted to be allergic to statin, Ezetimibe; Cardiology consult appreciated, plan for possible left heart catheterization tomorrow when patient is more euvolemic. Continue supportive care and supplemental oxygen. Qualifiers: Heart failure type: systolic Heart failure chronicity: acute Qualified Code(s): I50.21 - Acute systolic (congestive) heart failure (2) Pleural effusion due to CHF (congestive heart failure) Current Visit: Yes Status: Acute Assessment and plan: Chest x-ray showed bilateral pleural effusions and patient presented with dyspnea and hypoxia and elevated BNP. due to CHF. continue IV Lasix. No signs of infection/pneumonia at this time. (3) DVT prophylaxis Current Visit: Yes Status: Acute (4) Coronary artery disease Current Visit: Yes Status: Chronic Assessment and plan: plan as above; Qualifiers: Coronary Disease-Associated Artery/Lesion type: [place] artery [place] vs. transplanted heart: [place] heart Associated angina: without angina Qualified Code(s): I25.10 - Atherosclerotic heart disease of [place] coronary artery without angina pectoris (5) Osteoarthritis Current Visit: Yes Status: Chronic Qualifiers: Osteoarthritis location: unspecified site Osteoarthritis type: primary Qualified Code(s): M19.91 - Primary osteoarthritis, unspecified site - Time Spent With Patient Total time spent is greater than 50% in coordination of care (as documented) at patient's floor/unit and/or counseling patient: - Subjective Interval history: Reports feeling weak and somewhat drowsy today. No chest pain, improved shortness of breath. Continues to require low flow oxygen. Improving leg swelling. - Constitutional Vitals: Temp Pulse Resp BP Pulse Ox 98.2 F 80 16 111/67 94 11/15/17 15:12 11/15/17 15:12 11/15/17 15:12 11/15/17 15:12 11/15/17 15:12 General appearance: Present: A&O X 3, answers questions appropriately - Respiratory Respiratory exam: Present: CTAB. Absent: accessory muscle use, rales, rhonchi, wheezes - Cardiovascular Cardiovascular exam: Present: RRR, +S1, +S2. Absent: diastolic murmur, gallop, rubs, systolic murmur - GI/Abdominal GI/Abdominal exam: Present: normal bowel sounds, soft, no peritoneal signs. Absent: distended, tenderness - Extremities Exam Extremities exam: Present: full ROM, pedal edema, warm, radial pulses palpable and symmetrical. Absent: calf tenderness, cyanotic - Neurological Exam Neurological exam: Present: CN II-XII intact, oriented X3, no focal deficits. Absent: pronater drift, facial droop, speech deficit Internal Medicine: Result - Labs CBC & Chem 7: 11/14/17 03:54 11/15/17 04:37 - ABG Interpretation ABG results: PT/INR, D-dimer PT 11.7 Seconds (9.4-12.1) 11/14/17 03:54 D-Dimer 495 ng/mLFEU (0-500) 11/13/17 16:12 Consult Discharge Plan - Plan Referrals: Ekaterina Joseph MD [Primary Care Provider] -
[2017-11-15] MEDS: Aspirin Enteric Coated 81 MG Tablet PO SCH (16:52)
[2017-11-15] MEDS: PRESER VISION PO SCH ×2 (16:52→20:59)
[2017-11-15] MEDS: *HR* Heparin 5,000 UNIT/ML VIAL SQ SCH ×2 (16:52→23:54)
--- NOTE | 2017-11-15 22:29 | Event Note ---
Date of Encounter: 11/15/17 Time of Encounter: 22:27 Nursing reports patient having bigeminy. Will get 12 lead EKG, mag, potassium. Nursing to notify Dr. Portillo with results.
[2017-11-15 23:08] LABS: Magnesium 2.1 mg/dL (1.6-2.6); Potassium 3.4 mEq/L (3.5-5.1)
--- NOTE | 2017-11-16 09:20 | Event Note ---
Date of Encounter: 11/16/17 Time of Encounter: 08:40 - Cardiology Event Note Selected Entries 11/16/17 07:09 O2 Sat by Pulse Oximetry 96 Oxygen Flow Rate (LPM) 2 Oxygen Delivery Method Nasal Cannula Laboratory Tests 11/14/17 11/15/17 03:54 04:37 INR 1.0 Creatinine 0.87 Est GFR (Non-Af Amer) > 60 Patient seen with family at bedside. She denies any chest pain. Was able to sleep last night laying flat with no complications. Lungs clear all lobes. On nasal oxygen 2 L sats 96%. Plan for catheterization today. All questions answered.
[2017-11-16] MEDS: Acetaminophen 325 MG TABLET PO PRN ×2 (09:41→18:51)
[2017-11-16] MEDS: Metoprolol XL (24 HR) Succ 25 MG TAB.ER.24H PO SCH (09:42)
[2017-11-16] MEDS: Furosemide 40 MG/4 ML VIAL IVP SCH ×2 (09:43→18:33)
[2017-11-16] MEDS: PRESER VISION PO SCH (09:43)
[2017-11-16] MEDS: *HR* Heparin 5,000 UNIT/ML VIAL SQ SCH ×2 (09:43→18:33)
--- NOTE | 2017-11-16 12:25 | Pre-Sedation Evaluation ---
Pre-sedation evaluation - Pre-sedation checklist Date of procedure: 11/16/17 Procedure: Left Heart Cath Recent Vitals: Last Vital Signs Temp 98.5 F 11/16/17 11:09 Pulse 76 11/16/17 11:09 Resp 16 11/16/17 11:09 BP 99/60 11/16/17 11:09 Pulse Ox 94 11/16/17 11:09 H&P (including ROS) documented in medical record: Yes Previous reaction to sedatives/anesthetics: No Dietary Status: Clear fluids after Midnight ASA Classification *see protocol: CLASS II-Mild systemic disease Plan of Care: Pt appropriate candidate for procedure/moderate/conscious sedation , Risks/benefits of procedure/sedation discussed w/ patient/family Cardiac Registry (Cardio Only) - Functional Capacity Functional Capacity: < 4 METS - Clincal Frailty Scale Clinical Frailty Scale: Vulnerable
--- NOTE | 2017-11-16 15:41 | Internal Med Progress Note ---
Date of Encounter: 11/16/17 Time of Encounter: 10:50 - Assessment and plan (1) CHF (congestive heart failure) Current Visit: Yes Status: Acute Assessment and plan: Echocardiogram noted to show significant cardiomyopathy with EF 20-25%, global systolic dysfunction, left ventricular dilation, indeterminate diastolic function. Continue diuresis with IV Lasix, fluid restriction and urine output monitoring. Telemetry monitoring. Serial troponins negative for ACS. Lipid profile reviewed, noted to have elevated triglycerides and LDL cholesterol. However patient is noted to be allergic to statin, Ezetimibe; Cardiology on board, recommend Metoprolol XL, plan for [facility] today; Continue supportive care and supplemental oxygen. Home O2 evaluation prior to discharge. Qualifiers: Heart failure type: systolic Heart failure chronicity: acute Qualified Code(s): I50.21 - Acute systolic (congestive) heart failure (2) Pleural effusion due to CHF (congestive heart failure) Current Visit: Yes Status: Acute Assessment and plan: Chest x-ray showed bilateral pleural effusions and patient presented with dyspnea and hypoxia and elevated BNP. due to CHF. continue IV Lasix. No signs of infection/pneumonia at this time. (3) DVT prophylaxis Current Visit: Yes Status: Acute (4) Coronary artery disease Current Visit: Yes Status: Chronic Qualifiers: Coronary Disease-Associated Artery/Lesion type: [place] artery [place] vs. transplanted heart: [place] heart Associated angina: without angina Qualified Code(s): I25.10 - Atherosclerotic heart disease of [place] coronary artery without angina pectoris (5) Osteoarthritis Current Visit: Yes Status: Chronic Qualifiers: Osteoarthritis location: unspecified site Osteoarthritis type: primary Qualified Code(s): M19.91 - Primary osteoarthritis, unspecified site - Time Spent With Patient Total time spent is greater than 50% in coordination of care (as documented) at patient's floor/unit and/or counseling patient: - Subjective Interval history: Feels better; improved dyspnea, leg swelling, fatigue and drowsiness; has right neck pain, probably due to poor sleep positioning; - Constitutional Vitals: Temp Pulse Resp BP Pulse Ox 98.5 F 76 16 99/60 94 11/16/17 11:09 11/16/17 11:09 11/16/17 11:09 11/16/17 11:09 11/16/17 11:09 General appearance: Present: A&O X 3, answers questions appropriately - Respiratory Respiratory exam: Present: CTAB. Absent: accessory muscle use, rales, rhonchi, wheezes - Cardiovascular Cardiovascular exam: Present: RRR, +S1, +S2. Absent: diastolic murmur, gallop, rubs, systolic murmur Internal Medicine: Result - Labs CBC & Chem 7: 11/14/17 03:54 11/15/17 22:37 Labs: BMP 11/15/17 22:37 Potassium 3.4 L - ABG Interpretation ABG results: PT/INR, D-dimer PT 11.7 Seconds (9.4-12.1) 11/14/17 03:54 D-Dimer 495 ng/mLFEU (0-500) 11/13/17 16:12 Consult Discharge Plan - Plan Referrals: Ekaterina Joseph MD [Primary Care Provider] -
[2017-11-16] MEDS ORDERED: Nitroglycerin 1,000 MCG/10 ML VIAL IV ONE (16:10)
[2017-11-16] MEDS ORDERED: Heparin 1,000 UNITS/500 mL 500 ML ONE (16:10)
[2017-11-16] MEDS ORDERED: ISOVUE-370 200 ML INFUS..BTL IV ONE (16:10)
[2017-11-16] MEDS ORDERED: 0.9 % Sodium Chloride 1,000 ML ONE ×2 (16:10→16:17)
[2017-11-16] MEDS ORDERED: *HR* Heparin 10,000 UNIT/10 ML VIAL ONE (16:10)
[2017-11-16] MEDS ORDERED: *HR* Midazolam HCl 2 MG/2 ML VIAL ONE (17:04)
[2017-11-16] MEDS ORDERED: *HR* FentaNYL (PF) 100 MCG/2 ML VIAL ONE (17:04)
--- NOTE | 2017-11-16 17:27 | Electrocardiograph Report ---
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
--- NOTE | 2017-11-16 17:59 | Event Note ---
Date of Encounter: 11/16/17 Time of Encounter: 18:00 - Cardiology Event Note Distal left main trifurcation very hazy and calcified 70-80% stenosis into LAD/ ramus/LCx. RCA 100% mid with contralateral collaterals. LAD mid long 70%, OM 70%. EF 20%. Consult CT surgery. Advance medical management. High tercile SYNTAX Score.
--- NOTE | 2017-11-16 18:03 | Invasive Diagnostic Lab Proc ---
Name: Nataliia Saleem Date of Study: 11/16/2017 Date: 1930 Ht: 63.0in Medical Record#: [id number] Age: 87 Wt: 147.71lb Gender: Female BSA: 1.7 Order #: [id number] BMI: 26.17 Physicians Procedure Physician: Robby Fuentes MD, [facility] Referring MD: Referring MD: Staff Name Position Time In Jennifer Ozuna RT Monitor 05:08 PM Karolina Strong RT (R) Scrub 05:08 PM Mariya Vargas RN Building Maintenance Mechanic 05:08 PM Indications Indication Abnormal Test - ECHO Procedures Performed Procedure L HRT ARTERY/VENTRICLE ANGIO Pre-Procedure Checklist Informed consent is complete signed and on chart. H&P is on chart. ID band is on and ID verified with patient. Patient NPO for procedure The procedure was described for the patient and questions were answered. Blood Pressure: 117/68 ECG is on chart. Rhythm: NSR Plan of Care Patient will tolerate the procedure without complications. Adequate level of comfort will be maintained. Hemodynamics will remain stable Patient will recover from procedure without complications. Respiratory function will be maintained. Cardiac rhythm will remain stable. Patient temperature will be maintained. Patient and/or family have verbalized understanding of the procedure. Patient Education Chief Complaint/Reason for Test: Cardiac Cath Developmental Category: Geriatric (65+ years) Developmentally Appropriate for Age: Yes Learning Barriers: None Education Needs: Procedure Education Method: Verbal Information Taught: Cardiac Cath Educational Evaluation: Able to repeat information Intravenous Access Time IV Size Location DC'd Fluid/Drip Rate Units RN 20g 1 05/07" Patent On Arrival 0.9NaCl ml/hr Allergies Atorvastatin Calcium codeine FENOFIBRATE MEPERIDINE *HR* CODEINE *HR* MEPERIDINE NARCOTICS isosorbide iron niacin morphine Isosorbide Mononitrate Simvastatin Pravastatin Opioid Methyl Salicylate Vital Signs Time BP (mmHg) HR (bpm) O2 Sat. RR (bpm) LOC 05:10 PM / % 5 = Fully awake and oriented or at pre-proc level 05:10 PM / % 4 = Oriented but drowsy 05:07 PM 117 / 68 77 94 % 05:12 PM 131 / 73 80 98 % 18 05:17 PM 117 / 62 85 91 % 15 05:22 PM 115 / 57 84 92 % 14 05:27 PM 117 / 67 81 92 % 15 05:32 PM 107 / 66 79 91 % 16 05:37 PM 116 / 63 82 92 % 17 Procedural Medications Time Medication Dose Units Method Given By 05:10 PM Oxygen 2 L/min nasal cannula Mariya Vargas RN 05:15 PM Versed 2 mg Intravenous Mariya Vargas RN 05:15 PM Fentanyl 25 mcg Intravenous Mariya Vargas RN 05:18 PM Oxygen 4 L/min nasal cannula Mariya Vargas RN 05:26 PM Lidocaine 2% 20 ml Subcutaneous Robby Fuentes MD, [facility] ASA Classification: CLASS II- Mild systemic disease (i.e. well-controlled diabetes, hypertension, asthma, cigarette smoking) Joe Score Preprocedure Postprocedure Activity 2- Moves 4 extremities sustained head lift Activity 2- Moves 4 extremities sustained head lift Circulation 2- SBP +/= 20 points of pre-anesthetic level Circulation 2- SBP +/= 20 points of pre-anesthetic level Consciousness 2- Awake and alert oriented x 3 Consciousness 2- Awake and alert oriented x 3 O2 Saturation 2- Able to maintain O2 satruation of 92% on room air O2 Saturation 2- Able to maintain O2 satruation of 92% on room air Respiratory 2- Able to deep breathe and cough well Respiratory 2- Able to deep breathe and cough well Total Score 10 Total Score 10 Contrast Agent: Isovue Diagnostic Contrast: 67 ml Total Contrast: 67 ml Fluoro Dose: 2287 mGy Procedure Log Time Note Enter By 05:07 PM CathStat 05:07 PM Vitals capture started with the following parameters, Patient=Adult, Interval=5 min, Initial Wnfibwzq=778 mmHg, Deflation Rate=5 mmHg, Cuff placed on Right Arm 05:07 PM HR=77 bpm, ENTN=858/68 mmhg, SpO2=94 % 05:08 PM Pt arrived to analytical lab analyst 2 at 17:08 [email or web address] 05:08 PM Jennifer Ozuna RT Position: Monitor Time in: 17:08 05:08 PM Karolina Strong RT (R) Position: Scrub Time in: 17:08 [email or web address] 05:08 PM Mariya Vargas RN Position: Building Maintenance Mechanic Time in: 17:08 kkner 05:08 PM Patient charges- Angio tray pack, Navilyst 3mm J, Pulse Oximetry and ACIST tubing and transducer kk:08 PM Case Delayed No kk PM Hair removed from procedure site in procedure lab using clippers. Bilateral groin prepped with Chloraprep by Mariya Vargas RN, then patient was draped. Skin intact. kk: PM Physician arrived 17:08 : PM ASA Class CLASS II- Mild systemic disease (i.e. well-controlled diabetes, hypertension, asthma, cigarette smoking) kkner : PM Meet and greet completed kk: PM Sign in performed according to hospital policy. kk: PM Procedure start 17: 05: PM bilateral hearing aids in place PM Time: 17:10 Oxygen on at 2 L/min per nasal cannula by Mariya Vargas RN : PM Time: 17:10 Patient comfortable and pain free: Yes PM Time: 17:10LOC: 5 = Fully awake and oriented or at pre-proc level kk 05:10 PM Clinical Presentation: Unstable angina 05:12 PM HR=80 bpm, VTSZ=638/73 mmhg, SpO2=98.0 %, Resp=18 B/min 05:15 PM Time: 17:15 Versed 2 mg Intravenous Given by Mariya Vargas RN 05:15 PM Time: 17:15 Fentanyl 25 mcg Intravenous Given by Mariya Vargas RN 05:17 PM Pressure channel 1 zeroed. 05:17 PM HR=85 bpm, CCYR=770/62 mmhg, SpO2=91.0 %, Resp=15 B/min 05:18 PM Time: 17:18 Oxygen on at 4 L/min per nasal cannula by Mariya Vargas RN seema 05:22 PM HR=84 bpm, MQOA=582/57 mmhg, SpO2=92.0 %, Resp=14 B/min 05:25 PM Time: 17:10LOC: 4 = Oriented but drowsy kk PM Time: 17:10 Patient comfortable and pain free: kk PM Time out performed according to hospital policy PM Time: 17:26 20 ml Lidocaine 2% to right groin Subcutaneous Given by Robby Fuentes MD, [facility] kkallner 05:27 PM HR=81 bpm, ZFUE=448/67 mmhg, SpO2=92.0 %, Resp=15 B/min 05:28 PM Access obtained by percutaneous puncture. 5Fr 10cm Terumo [place] sheath placed in right Femoral artery. [id number] kkallner 05:28 PM 5Fr FL 4 catheter inserted over the wire DN kkallner 05:28 PM wire removed kkallner 05:29 PM LCA angiography performed in multiple views. [email or web address] 05:29 PM Recorded Pressure: Ao, HR=82, Condition=Condition 1 (Aorta) Ao 93/62/78 05:31 PM Catheter removed kkallner 05:32 PM 5Fr FR 4 catheter inserted over the wire [facility] kkallner 05:32 PM HR=79 bpm, CKDQ=825/66 mmhg, SpO2=91.0 %, Resp=16 B/min 05:32 PM wire removed kkallner 05:33 PM Recorded Pressure: Ao, HR=77, Condition=Condition 1 (Aorta) Ao 93/67/80 05:34 PM RCA angiography performed in [facility]. kkallner 05:34 PM Catheter removed kkallner 05:34 PM Coronary Dominance: right kkallner 05:34 PM 5Fr Pigtail catheter inserted over the wire [facility] kkallner 05:34 PM wire removed kkallner 05:34 PM Catheter selectively placed in left ventricle kkallner 05:35 PM Bolus angiogram of left Ventricle complete: 12 ml/sec for a total of 30 mls kkallner 05:35 PM Recorded Pressure: LV, HR=87, Condition=Condition 1 (Left Ventricle) LV 99/15/24 05:36 PM Recorded Pressure: LV, Ao, HR=80, Condition=Condition 1 (Left Ventricle) LV 109/10/25, (Aorta) Ao 112/60/79 05:37 PM Bolus angiogram of right Femoral complete: 2 ml/sec for a total of 4 mls kkallner 05:37 PM HR=82 bpm, CXKE=178/63 mmhg, SpO2=92.0 %, Resp=17 B/min 05:38 PM Lesion found in Mid LAD. Pre Stenosis: 70 Pre JAS Flow: kkallner 05:38 PM Lesion found in Ramus. Pre Stenosis: 70 Pre JAS Flow: kkallner 05:38 PM Lesion found in Proximal RCA. Pre Stenosis: 100 Pre JAS Flow: kkallner 05:39 PM Proximal Left Anterior Descending Coronary Artery with 0% stenosis. If graft is supplying this territory, 0 % stenosis. kkallner 05:39 PM Mid/Distal Left Anterior Descending Coronary Artery and diagonal branches with 70% stenosis. If graft is supplying this area, 0 % stenosis kkallner 05:39 PM Circumflex, Obtuse Marginal, Left Posterior Descending, and Left Posterolateral Coronary Arteries with 0 % stenosis. If graft is supplying this area, 0 % stenosis kkallner 05:40 PM Right Coronary, Right Posterior Descending Arteries with Right Posterolateral and Acute Marginal branches with 100 % stenosis. If graft is supplying this area, 0 % stenosis kkallner 05:40 PM Ramus with 70% stenosis. If graft is supplying this area, 0 % stenosis kkallner 05:41 PM Lesion found in Distal LMCA. Pre Stenosis: 70 Pre JAS Flow: kkallner 05:41 PM Left Main Coronary Artery with 70% stenosis kkallner 05:41 PM Conversation between Interventionalist and CT Surgeon. kkallner 05:41 PM Procedure completed at 17:41 11/16/2017 [email or web address] 05:42 PM What is the NYHA Class? Class 3 [email or web address] 05:42 PM Did you address JAS flow and Dominance? Yes kkallner 05:42 PM Sign out completed: Radiation Dose 161.85 mGy, 2286.63 cGy/cm2 Fluoro Time: 2.0 Isovue 370 - 200ml contrast 67 ml given by Robby Fuentes MD, [facility]. Complications: NoneCardiac Rehab Consult needed: YesConfirmed administered medications: Yes kkallner 05:43 PM Vitals capture stopped. 05:[address] Peters spoke with Dr. Fuentes. Dr. Peters suggests tertiary center. kkallner 05:44 PM Isovue 370 - 200ml,1 Bottle(s) used. kkallner 05:44 PM Arterial sheath pulled, Mynx closure device used and was Successful [id number] S/N. kkallner 05:44 PM Estimated Blood Loss: minimal kkallner 05:44 PM Post ECG NSR kkallner 05:44 PM Post Blood Pressure 116/63 kkallner 05:45 PM 17:45 Post Pulses Bilateral DP & PT 1+ kkallner 05:45 PM Information taught Cardiac Cath and Mynx kkallner 05:45 PM Education needs Procedure, Plan of Care, and Responsibilities of Patient in Care kkallner 05:45 PM Learning barriers :None kkallner 05:45 PM Education Methods Verbal kkallner 05:45 PM Education evaluation Able to repeat information kkallner 05:45 PM Site status No bleeding/hematoma - Rt Groin as reported by Karolina Strong RT (R) at 17:45 kkallner 05:45 PM Opsite applied kkallner 05:47 PM Report given to Avril BALLARD Pt taken to 2NE Room #29. 17:47 kkallner 05:47 PM Plavix, Effient or Brilinta given No kkallner 05:47 PM Delay to floor No kkallner 05:47 PM Patient out of room: 17:47 kkallner 05:47 PM Family placed in consult room. kkallner 05:47 PM Complications: None kkallner Complications Complication None None Hemodynamics Pressures Site Systolic/A Wave Diastolic/V Wave Mean AO 93 62 78 AO 93 67 80 LV 99 15 24 LV 109 10 25 AO 112 60 79 Post Procedure Information Blood Pressure: 116/63 mmHg Rhythm: NSR Post procedural instructions were given Surgery consult for CABG Site Checks Time Location Status Staff Sheath In? Note 05:45 PM Rt Groin No bleeding/hematoma Karolina Strong RT (R) Pulses Time Site Pre-Procedure Post-Procedure Note Bilateral DP & PT 1+ Bilateral radial 1+ 5:45:00 PM Bilateral DP & PT 1+ Updated by Jennifer Ozuna, RT (R) on 11/16/2017 5:57:27 PM electronically signed on 11/16/2017 5:57:56 PM with status of Final
[2017-11-16] MEDS: Aspirin Enteric Coated 81 MG Tablet PO SCH (18:33)
--- NOTE | 2017-11-16 18:53 | Electrocardiograph Report ---
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
[2017-11-17] MEDS: *HR* Heparin 5,000 UNIT/ML VIAL SQ SCH ×3 (01:50→17:27)
--- NOTE | 2017-11-17 08:23 | Internal Med Progress Note ---
Date of Encounter: 11/17/17 Time of Encounter: 08:23 - Assessment and plan (1) Pleural effusion due to CHF (congestive heart failure) Current Visit: Yes Status: Acute (2) DVT prophylaxis Current Visit: Yes Status: Acute (3) Coronary artery disease Current Visit: Yes Status: Chronic Qualifiers: Coronary Disease-Associated Artery/Lesion type: [place] artery [place] vs. transplanted heart: [place] heart Associated angina: without angina Qualified Code(s): I25.10 - Atherosclerotic heart disease of [place] coronary artery without angina pectoris (4) Osteoarthritis Current Visit: Yes Status: Chronic Qualifiers: Osteoarthritis location: unspecified site Osteoarthritis type: primary Qualified Code(s): M19.91 - Primary osteoarthritis, unspecified site (5) CHF (congestive heart failure) Current Visit: Yes Status: Acute Qualifiers: Heart failure type: systolic Heart failure chronicity: acute Qualified Code(s): I50.21 - Acute systolic (congestive) heart failure - Time Spent With Patient Total time spent is greater than 50% in coordination of care (as documented) at patient's floor/unit and/or counseling patient: - Constitutional Vitals: Temp Pulse Resp BP Pulse Ox 97.9 F 98 16 120/89 91 11/16/17 17:56 11/16/17 18:57 11/16/17 18:08 11/16/17 21:30 11/17/17 01:04 General appearance: Present: A&O X 3, answers questions appropriately Internal Medicine: Result - Labs CBC & Chem 7: 11/14/17 03:54 11/15/17 22:37 - ABG Interpretation ABG results: PT/INR, D-dimer PT 11.7 Seconds (9.4-12.1) 11/14/17 03:54 D-Dimer 495 ng/mLFEU (0-500) 11/13/17 16:12 Consult Discharge Plan - Plan Referrals: Ekaterina Joseph MD [Primary Care Provider] -
[2017-11-17] MEDS: PRESER VISION PO SCH ×2 (09:13→17:27)
[2017-11-17] MEDS: Furosemide 40 MG/4 ML VIAL IVP SCH (09:13)
[2017-11-17] MEDS: Metoprolol XL (24 HR) Succ 25 MG TAB.ER.24H PO SCH (09:14)
[2017-11-17] MEDS ORDERED: Sennosides 8.6 MG TABLET PO SCH (09:45)
--- NOTE | 2017-11-17 11:41 | Discharge Summary ---
<Carmen Ash N - Last Filed: 11/17/17 13:35> - NOTES TO OUTPATIENT PROVIDER Notes to Outpatient Provider: Patient was admitted for acutely worsening SOB secondary to pleural effusion. She underwent LHC during admission, which showed extensive coronary artery disease. Patient was transferred to [facility] for further evaluation and second opinion regarding potential open heart procedure. Date of Encounter: 11/17/17 Time of Encounter: 11:41 - Discharge Diagnosis (1) Pleural effusion due to CHF (congestive heart failure) Priority: Primary Status: Acute (2) DVT prophylaxis Priority: Secondary Status: Acute (3) Coronary artery disease Priority: Secondary Status: Chronic Qualifiers: Coronary Disease-Associated Artery/Lesion type: [place] artery [place] vs. transplanted heart: [place] heart Associated angina: without angina Qualified Code(s): I25.10 - Atherosclerotic heart disease of [place] coronary artery without angina pectoris (4) Osteoarthritis Priority: Secondary Status: Chronic Qualifiers: Osteoarthritis location: unspecified site Osteoarthritis type: primary Qualified Code(s): M19.91 - Primary osteoarthritis, unspecified site (5) CHF (congestive heart failure) Priority: Secondary Status: Acute Qualifiers: Heart failure type: systolic Heart failure chronicity: acute Qualified Code(s): I50.21 - Acute systolic (congestive) heart failure Hospital course: Ms. Saleem is a 87 year old female with a medical history of CAD and CHF who presented with a two week history of increasing shortness of breath and dry cough. She also complained of exertional dyspnea and left arm pain radiating to the neck. Prior to this, she was very active, swimming and bicycling several times per week. CXR on admission showed a borderline heart size and left > right pleural effusions with compressive bibasilar atelectasis. Echocardiogram showed EF 20-25% with global systolic dysfunction, left ventricle dilation, and indeterminate diastolic function. She underwent lasix diuresis. Upon normalization of volume status, patient underwent a left heart cath, which showed extensive disease, as follows: * Left main coronary artery - severely calcified with very hazy and severely calcified 70% stenosis in the distal LMCA - trifurcation * LAD - 70% long stenosis in med LAD; ostial proximal 70% stenosis * Circumflex - ostial 70% stenosis; first marginal has 50% stenosis * Ramus - 70% stenosis in ostial proximal ramus - lesion is a trifurcation lesion * Right coronary artery - 100% stenosis in proximal RCA - lesion has collaterals that feed from left to right The patient's family requested transfer to tertiary care center for second opinion and potential open heart procedure. - Time Spent with Patient Total time spent providing and/or coordinating discharge services: - Discharge Medications Home Medications: Aspirin Enteric Coated [Aspirin EC] 81 mg PO QPM 11/13/17 [History] Omeprazole [PriLOSEC] 40 mg PO QAM 11/13/17 [History] Glycerin [Glycerin Laxative] 5.4 gm RC DAILY 11/14/17 [History] Metoprolol XL (24 HR) Succ [Toprol Xl] 12.5 mg PO DAILY tab.er.24h 11/17/17 [Rx ] Allergies/Adverse Reactions: 3 Allergy/AdvReac Type Severity Reaction Status Date / Time alendronate sodium Allergy See Verified 11/13/17 17:14 [From Fosamax] Comments atorvastatin [From Lipitor] Allergy Muscle Pain Verified 11/13/17 17:14 codeine Allergy Dizziness Verified 11/13/17 17:14 ezetimibe [From Zetia] Allergy Dizziness Verified 11/13/17 17:14 fenofibrate Allergy Muscle Pain Verified 11/13/17 17:14 fish oil Allergy Abdominal Verified 11/13/17 17:14 Pain iron Allergy Nausea Verified 11/13/17 17:14 isosorbide [From Imdur] Allergy See Verified 11/13/17 17:14 Comments morphine Allergy Dizziness Verified 11/13/17 17:14 niacin Allergy Muscle Pain Verified 11/13/17 17:14 [From Niaspan Extended-Release] pravastatin [From Pravachol] Allergy Joint Pain Verified 11/13/17 17:14 simvastatin Allergy Flatulence Verified 11/13/17 17:14 Date of admission: 11/15/17 15:55 Primary care physician: Ekaterina Joseph MD Discharging clinician: Carmen Ash Anticipated date of discharge: 11/17/17 - Constitutional Vitals: Temp Pulse Resp BP Pulse Ox 98.1 F 73 16 116/67 95 11/17/17 10:57 11/17/17 10:57 11/17/17 10:57 11/17/17 10:57 11/17/17 10:57 General appearance: Present: A&O X 3, pleasant, no acute distress, answers questions appropriately - Head Head exam: Present: atraumatic, normal inspection, normocephalic - Respiratory Respiratory exam: Present: CTAB. Absent: rales, respiratory distress, rhonchi, stridor, wheezes - Cardiovascular Cardiovascular exam: Present: RRR, +S1, +S2, systolic murmur. Absent: diastolic murmur, gallop, rubs - GI/Abdominal GI/Abdominal exam: Present: normal bowel sounds, soft. Absent: tenderness - Extremities Exam Extremities exam: Present: full ROM. Absent: cyanotic, pedal edema, tenderness - Patient Status Disposition: Transfer Short-Term Hosp Condition: Fair Functional capacity at discharge: independent ambulation Overall status at discharge: patient is progressing back to baseline - Discharge Instructions Follow Up With: Ekaterina Joseph MD [Primary Care Provider] - - Diet and Activity Activity: resume usual activities as tolerated Diet: low salt diet <Olvin Zimmerman - Last Filed: 11/17/17 17:45> Date of Encounter: 11/17/17 - Discharge Diagnosis (1) CHF (congestive heart failure) Priority: Primary Status: Acute Assessment and Plan: Not on EBONY at this time. Deferred to [facility] and further plan of care. Qualifiers: Heart failure type: systolic Heart failure chronicity: acute Qualified Code(s): I50.21 - Acute systolic (congestive) heart failure (2) Coronary artery disease Status: Chronic Qualifiers: Coronary Disease-Associated Artery/Lesion type: [place] artery [place] vs. transplanted heart: [place] heart Associated angina: without angina Qualified Code(s): I25.10 - Atherosclerotic heart disease of [place] coronary artery without angina pectoris (3) Osteoarthritis Status: Chronic Qualifiers: Osteoarthritis location: multiple joints Osteoarthritis type: primary Qualified Code(s): M15.0 - Primary generalized (osteo)arthritis (4) Pleural effusion Priority: Secondary Status: Acute (5) HX: breast cancer Priority: Secondary Status: Chronic Hospital course: Ms. Saleem is a 87 year old female - Time Spent with Patient Total time spent providing and/or coordinating discharge services: 37min Date of admission: 11/15/17 15:55 Primary care physician: Ekaterina Joseph MD - Constitutional Vitals: Temp Pulse Resp BP Pulse Ox 98 F 74 16 109/73 95 11/17/17 15:49 11/17/17 15:49 11/17/17 15:49 11/17/17 15:49 11/17/17 15:49 - Attending Attestation I examined this patient and my medical decision-making was reviewed with the Resident Physician on 11/17/17. I agree with the documented findings, disposition and treatment plan as described except to the extent set forth below. Ms Saleem has been admitted for acute exac CHF. 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 She is being transferred to [facility] for cardiothoracic evaluation. Exam Alert Comfortable Mucus membranes dry Heart reg No wheeze Plan D/C to [facility] per cardiology and cardiothoracic recommendation.
--- NOTE | 2017-11-17 13:01 | Cardiology Progress Note ---
Date of Encounter: 11/17/17 Time of Encounter: 11:00 Assessment and Plan (1) CHF (congestive heart failure) Current Visit: Yes Status: Acute Per Cardiology: Clinically improved. On IV Lasix. Qualifiers: Heart failure type: systolic Heart failure chronicity: acute Qualified Code(s): I50.21 - Acute systolic (congestive) heart failure (2) Coronary artery disease Current Visit: Yes Status: Chronic Per Cardiolpogy: Echo showed EF decreased to 20%. Underwent left heart catheterization which showed very hazy distal left main 70% lesion at trifurcation, mid LAD 70%, ostial proximal 70%, ostial 70% circumflex, OM1 50%, ostial proximal ramus 70%, proximal RCA 100% with collaterals from left to right. Discussed and reviewed with Dr. Peters with CT surgery with recommendations for tertiary center referral for evaluation of potential CABG. I had lengthy discussion with patient and family regarding findings and recommendations. Agreeable to transfer to [facility] for further evaluation and recommendations. Discussed with primary service. Recommend inpatient inpatient transfer. All questions answered. Cardiogenic will sign off, reconsult as needed, follow-up arranged after evaluation at outside facility. Chest pain-free. Qualifiers: Coronary Disease-Associated Artery/Lesion type: [place] artery [place] vs. transplanted heart: [place] heart Associated angina: without angina Qualified Code(s): I25.10 - Atherosclerotic heart disease of [place] coronary artery without angina pectoris Discussion w patient/family: The assessment and plan as outlined above was discussed with the patient and/or family members who expressed understanding and agreement. All questions were answered. Thank you for involving us in the care of your patient. Please call with any questions. Subjective Principal diagnosis: SOB, Swelling Interval history: Patient seen with family at bedside. She reports improvement of her shortness of breath and swelling to lower extremities. She denies any chest pain or palpitations. Denies any concerns or complaints. Objective Vital Signs, Last 4 Hours Temp Pulse Resp BP Pulse Ox 11/17/17 10:57 98.1 F 73 16 116/67 95 General: Conversant, No Apparent Distress HEENT: Atraumatic, Normocephaly, Mucus Membranes Moist Neck: No JVD, Normal carotid pulses Cardiac: Reg Rate and Rhythm, Normal S1 and S2, No Murmur Lungs: Normal Breath Sounds, No Wheeze, Rales, Rhonchi Neuro: Alert and responsive, No focal deficits noted Abdomen: Soft, Non-Tender Skin: No rashes noted on visualized skin, Other (Right groin site tried intact, no hematoma, no bleeding, no ecchymosis, right PT and DP pulses 2+ palpable) Musculoskeletal: No Chest Wall Tenderness Extremities: No Clubbing, No Cyanosis, No Edema, Normal Pulses Results 11/14/17 03:54 11/15/17 22:37 Active Medications Acetaminophen (Tylenol) 650 mg PO Q6HR PRN PRN Reason: Mild Pain/Fever Stop: 05/15/18 20:57 Last Admin: 11/16/17 18:51 Dose: 650 mg Hydrocodone Bitart/Acetaminophen (Dendron 5-325 Mg) 1 tab PO Q6HR PRN PRN Reason: Moderate Pain Stop: 05/15/18 20:57 Aspirin (Aspirin Ec) 81 mg PO QPM [facility] Stop: 05/16/18 18:01 Last Admin: 11/16/17 18:33 Dose: 81 mg Furosemide (Lasix) 40 mg IVP BIDDIURETIC [facility] Stop: 05/15/18 21:16 Last Admin: 11/17/17 09:13 Dose: 40 mg Glycerin (Sani-Supp) 1 each RC DAILY PRN PRN Reason: Constipation Stop: 05/16/18 19:00 Last Admin: 11/14/17 20:40 Dose: 1 each Heparin Sodium (Porcine) (Heparin) 5,000 unit SQ Q8HR [facility] Stop: 05/17/18 16:01 Last Admin: 11/17/17 09:13 Dose: 5,000 unit Metoprolol Succinate (Toprol Xl) 12.5 mg PO DAILY [facility] Stop: 05/18/18 09:01 Last Admin: 11/17/17 09:14 Dose: 12.5 mg Naloxone HCl (Narcan) 0.4 mg IVP Q2MIN PRN PRN Reason: SEE COMMENTS Stop: 05/15/18 20:57 Omeprazole (Prilosec) 40 mg PO 0630 [facility] Stop: 05/16/18 06:31 Last Admin: 11/17/17 05:37 Dose: Not Given Ondansetron HCl (Zofran Odt) 4 mg SL Q8HR PRN PRN Reason: Nausea And Vomiting Stop: 05/15/18 20:57 Last Admin: 11/16/17 21:16 Dose: 4 mg Oxycodone HCl (Roxicodone) 10 mg PO Q6HR PRN PRN Reason: Severe Pain Stop: 05/15/18 20:57 Pharmacy Profile Note (Patient Taking Own Medication) 1 each PO BIDWM [facility] Stop: 05/17/18 18:01 Last Admin: 11/17/17 09:13 Dose: 1 each Senna (Senna) 8.6 mg PO BID [facility] Stop: 05/19/18 09:46 Last Admin: 11/17/17 12:45 Dose: Not Given Tramadol HCl (Ultram) 50 mg PO Q6HR PRN PRN Reason: Moderate Pain Stop: 05/15/18 20:57 - Imaging and Cardiology Cardiac cath: report reviewed Consult Discharge Plan - Plan Referrals: Ekaterina Joseph MD [Primary Care Provider] -
[2017-11-17 15:52] VITALS: BP 109/73
[2017-11-17] MEDS: Aspirin Enteric Coated 81 MG Tablet PO SCH (17:27)
== END 2017-11-17 18:37 | disposition short-term general hospital (02) | DRG 287 ==
LOC: 2NENU 15:36 → EMEROO 15:36 → SUATTDRO 17:07 → 2NENU 18:03 → SUATTDRO 11-15 15:55
PROVIDERS: ADMIT Internal Medicine Nephrology; ATTEND Internal Medicine